=== PATIENT | female | born 1955 | race Caucasian/White ===

== ENCOUNTER 2016-08-09 04:52 | Emergency (ER) | payer BC ==
--- NOTE | 2016-08-09 06:31 | DIAGNOSTIC IMAGING REPORT ---
PROCEDURE: XR CHEST 2 VIEW INDICATION: SHORTNESS OF BREATH TECHNIQUE: PA and lateral view. COMPARISON: None. FINDINGS: Mild left upper lobe infiltrate with air bronchograms. 5 mm right mid lung nodule suggestive of a granuloma. Cardiovascular structures are normal. Bony thorax is unremarkable. IMPRESSION: 1. Left upper lobe pneumonia 2. 5 mm right mid lung peripheral nodule suggestive of a granuloma. Correlate with prior chest x-rays. If unavailable, recommend follow-up chest x-ray in 6 months.
--- NOTE | 2016-08-09 07:40 | ED ORDER SUMMARY ---
..... Patient: NICOLA WATTS OrderSheet [facility] VisitID: [id number] [address] [place] [address] 60y, F Registration Date/Time: 08/09/2016 ORDER SHEET Weight: 127.0 kg Allergies: No Known Drug Allergy GENERAL ORDERS: Chest 2V Urgent (05:10 08/09/2016 Lupe NICOLE) (Ack 5:12 ALawrence ER Tech1) (5:57 GUnger) Rapid Influenza Screen (Nasal Pharyngeal) (swab) Urgent (05:10 08/09/2016 Lupe NICOLE) (Ack 5:12 ALawrence ER Tech1) (5:27 HSoule) MEDICATION ORDERS: DuoNeb Neb Tx 1 unit dose (NOW) (05:11 08/09/2016 Lupe NICOLE) (5:27 HSoule) Zithromax PO 500 mg (NOW) (06:12 08/09/2016 Lupe NICOLE) (6:30 TLewis R.N.) IV FLUIDS: Rocephin IV 2 gm/50mL (NOW) (06:12 08/09/2016 Lupe NICOLE) (6:37 TLewis R.N.) ORDER SHEET NOTES: [Electronically signed by Jo-Ann Veras R.N. (08:42 08/09/2016)] [Electronically signed by Raf Chaudhary MD (23:32 08/11/2016)] [Electronically locked/signed by Jo-Ann Veras R.N. (08:42 08/09/2016)]
--- NOTE | 2016-08-09 07:40 | ED NURSING NOTES ---
Clinical Report - Nurses [facility] [address] [place] [address] 08/09/2016 4:54 Patient: NICOLA WATTS TRIAGE Triage time 04:58. Acuity: LEVEL 4. Chief Complaint: COUGH. --05:05 Franky Houston R.N. 04:58 08/09/16. BP: 170/88. HR: 102. RR: 15. O2 saturation: 99%. Temp: 99.5 F. Pain level now 11/16. --05:05 Franky Houston R.N. Weight: 127 kg. Height/Length: 62 inches. BMI: 51.3. --05:01 Franky Houston R.N. Medications Thyroid Hormone. --05:01 Franky Houston R.N. Lisinopril Oral. --05:01 Franky Houston R.N. Allergies No Known Drug Allergy. --05:01 Franky Houston R.N. Medication/allergy information source: the patient. --05:05 Franky Houston R.N. History Arrived by private vehicle. Historian: patient. Unaccompanied. Onset. (since friday). ( Pt has been coughing since Friday. Pt stated her urine is foul smelling, but no complaints of pain on urination. Pt is having sweating off and on. Pt took sulfa antibx that she had from a few months past then stopped taking them.). She has had chest congestion, chills and fatigue. Treatment BUTTERMAKER CONTINUOUS CHURN: Recently seen in a medical facility; treatment- antibiotic. PAST MEDICAL HX: Immunizations: up-to-date. SOCIAL HX: Never smoker. No alcohol use or drug use. --05:05 Franky Houston R.N. PROBLEMS: Multiple Sclerosis. Hypertension. Thyroid Disease. --05:02 Franky Houston R.N. ADDITIONAL SURGERIES: Knee Surgery. --05:03 Franky Houston R.N. Interventions ID band on patient. To waiting room. --05:05 Franky Houston R.N. PHYSICAL ASSESSMENT GENERAL / NEURO / PSYCH: Alert. Oriented X 4. Appears in no acute distress. HEENT: Pupils equal, round and reactive to light. Mucous membranes are pink. RESPIRATORY: Respirations not labored. Nonproductive cough. Chest nontender. Breath sounds within normal limits. ( pt has been having a dry cough since friday with non labored breathing.). CVS: Normal sinus rhythm noted. Capillary refill less than 2 seconds. Pulses within normal limits. GI / : Abdomen soft and nontender and normal bowel sounds. SKIN: Skin intact. Skin is warm and dry. Normal skin turgor. --05:06 Franky Houston R.N. NURSING PROGRESS NOTES Two patient identifiers checked. Call light placed in reach. Side rails up x 1. Bed placed in lowest position. --05:07 Franky Houston R.N. 05:27 08/09/2016 Duoneb (Ipratropium-Albuterol) Neb TX Nebulizer 1 unit dose given. Given by the respiratory therapist. Allergies verified and confirmed 5 rights. --05:27 Julia Del Castillo Reassessment after medication administered. Overall patient status- she states feels better. --05:28 Julia Del Castillo 06:28 08/09/2016 Site #1 started via IV in the right antecubital space with an 20g angiocath, with aseptic technique and good blood return; one attempt. Saline lock flushed with 10 mL saline. --06:29 Franky Houston R.N. 06:30 08/09/2016 Zithromax PO 500 mg given. Allergies verified and confirmed 5 rights. --06:30 Franky Houston R.N. 06:36 08/09/2016 Started 2 gm of Rocephin (CefTRIAXone Sodium) IVPB; at 150 mL/hr over 30 minute(s) via site #1 via IV pump. Allergies verified and confirmed 5 rights. IV patency established. IV site checked: no pain, redness, or swelling. IV flushed thoroughly pre- and post-medication administration. --06:37 Franky Houston R.N. 06:52 08/09/2016 Rocephin IVPB Discontinued: bag #1. Total amount infused: 50 mL. IV patency established. IV site checked: no pain, redness, or swelling. IV flushed thoroughly. --06:52 Franky Houston R.N. 07:22 08/09/16. The patient is resting quietly. Overall patient status is the same- she states feels worse (can't get comfortable). RESPIRATORY: No respiratory distress. CVS: Capillary refill within normal limits. SKIN: Skin is warm and dry. --07:22 Jo-Ann Veras R.N. 07:19 08/09/16. BP: 120/60. HR: 82. RR: 18. O2 saturation: 96%. Temp: 99.6 F (oral). Pain level now: 12/16. --07:22 Jo-Ann Veras R.N. 08:10. Reassessment after medication administered. She is calm and resting quietly. Overall patient status is improved- she states feels the same. RESPIRATORY: The patient reports cough. No respiratory distress. SKIN: Skin is warm and dry. --08:13 Jo-Ann Veras R.N. DISPOSITION / DISCHARGE 08:12 08/09/2016 Site #1 removed upon discharge. Catheter intact. Bandaid applied. --08:12 Jo-Ann Veras R.N. Departure time: 08. Condition at departure: stable. No learning barriers present. Discharge instructions provided and reviewed with the patient. Reviewed medication(s). Prescription(s) given to the patient. Patient verbalized understanding. Written instructions provided in Turkmen. The patient was discharged home and unaccompanied at time of discharge. She left the Emergency Department ambulatory and via private vehicle. FALL RISK ASSESSMENT: Fall risk assessment completed. No fall risk identified. --08:13 Jo-Ann Veras R.N. 08:08 08/09/16. BP: 141/84. HR: 84. RR: 18. O2 saturation: 97% on room air. Temp: 99.1 F (oral). Pain level now: 10/16. --08:13 Jo-Ann Veras R.N. Locked/Released at 08/09/2016 8:42 by Jo-Ann Veras R.N.
--- NOTE | 2016-08-09 07:40 | ED ORDER SUMMARY ---
..... Patient: NICOLA WATTS OrderSheet [facility] VisitID: [id number] [address] [place] [address] 60y, F Registration Date/Time: 08/09/2016 ORDER SHEET Weight: 127.0 kg Allergies: No Known Drug Allergy GENERAL ORDERS: Chest 2V Urgent (05:10 08/09/2016 Lupe NICOLE) (Ack 5:12 ALawrence ER Tech1) (5:57 GUnger) Rapid Influenza Screen (Nasal Pharyngeal) (swab) Urgent (05:10 08/09/2016 Lupe NICOLE) (Ack 5:12 ALawrence ER Tech1) (5:27 HSoule) MEDICATION ORDERS: DuoNeb Neb Tx 1 unit dose (NOW) (05:11 08/09/2016 Lupe NICOLE) (5:27 HSoule) Zithromax PO 500 mg (NOW) (06:12 08/09/2016 Lupe NICOLE) (6:30 TLewis R.N.) IV FLUIDS: Rocephin IV 2 gm/50mL (NOW) (06:12 08/09/2016 Lupe NICOLE) (6:37 TLewis R.N.) ORDER SHEET NOTES: [Electronically signed by Jo-Ann Veras R.N. (08:42 08/09/2016)] [Electronically signed by Raf Chaudhary MD (23:32 08/11/2016)] [Electronically locked/signed by Jo-Ann Veras R.N. (08:42 08/09/2016)]
--- NOTE | 2016-08-09 07:40 | ED CLINICAL REPORT ---
Clinical Report - Physicians/Mid Levels [facility] [address] [place] [address] 08/09/2016 4:54 [id number] Time Seen: 05:05 Aug 09 2016. Arrived- By private vehicle. Historian- patient. CPT: ER phys charges level 4 (#[id number]). HISTORY OF PRESENT ILLNESS Chief Complaint: COUGH. This started 3 days ER RN; ( Pt has been coughing since Friday. Pt stated her urine is foul smelling, but no complaints of pain on urination. Pt is having sweating off and on. Pt took sulfa antibx that she had from a few months past then stopped taking them.). She has had chest congestion, chills and fatigue. and is still present. The illness is described as moderate. The patient has had a cough. She has had moderate amounts of yellow, green sputum. No difficulty breathing, chest discomfort or pain, sore throat or hoarseness. No nasal congestion or discharge, sinus pressure or sinus drainage. Additional history - No known contact with a sick individual. Similar symptoms previously: Diagnosis: bronchitis. Recent medical care: Not recently seen/assessed. REVIEW OF SYSTEMS No headache, nausea, vomiting, diarrhea or abdominal pain. No pedal edema, calf pain, difficulty with urination or skin rash. All systems otherwise negative, except as recorded above. PAST HISTORY Multiple Sclerosis. Hypertension. Thyroid Disease Knee Surgery. Medications: Lisinopril Oral. Thyroid Hormone. Allergies: No Known Drug Allergy. SOCIAL HISTORY Never smoker. No alcohol use or drug use. ADDITIONAL NOTES The nursing notes have been reviewed. PHYSICAL EXAM Vital Signs: 08/09/2016 04:58 BP: 170/88. HR: 102. RR: 15. O2 saturation: 99%. Temp: 99.5 F. Appearance: Alert. No acute distress. Eyes: Eyes normal inspection. ENT: Nose normal. Pharynx normal. Neck: Normal inspection. CVS: Normal heart rate and rhythm. Heart sounds normal. Pulses normal. Respiratory: No respiratory distress. Mild wheezes in the left lung base posteriorly and mid-lung posteriorly. Abdomen: Soft and nontender. Back: Normal inspection. Skin: Skin warm. Normal skin color. No rash. Extremities: Extremities exhibit normal ROM. No calf tenderness. No lower extremity edema. Neuro: Oriented X 3. No motor deficit. No sensory deficit. LABS, X-RAYS, AND EKG Chest X-ray: Well-defined infiltrate in the left upper lobe. Consistent with pneumonia. Views: PA and lateral. Technique: good. The X-rays were independently viewed by me and interpreted contemporaneously by me. Laboratory Tests: Rapid Influenza Screen: (ARPITA: 08/09/2016 05:15) ( MsgRcvd 08/09/2016 05:33) Final results SPECIMEN DESCRIPTION: SWAB Test Result Flag Units (Reference) RAPID INFLUENZA SCREEN DATE: 08/09/16 INFLUENZA A: NEGATIVE SCREEN FOR INFLUENZA A INFLUENZA B: NEGATIVE SCREEN FOR INFLUENZA B . PROGRESS AND PROCEDURES Course of Care: Duoneb HHN: Wheezing better. Rocephin 2g IV Zithromax 500 mg po Patient is stable. Symptoms better. Patient/family counseled. Disposition: Discharged. Condition: stable. CLINICAL IMPRESSION Bacterial bronchopneumonia. Vital signs recorded and reviewed; empiric antibiotics given in the ED. No hypoxemia. INSTRUCTIONS No strenuous activity. Rest. Do not work for three days until better. Drink plenty of fluids. Warnings: Further evaluation is necessary. GENERAL WARNINGS: Return or contact your physician immediately if your condition worsens or changes unexpectedly, if not improving as expected, or if other problems arise. Your Current Medications: CONTINUE TAKING THE FOLLOWING MEDICATIONS: Lisinopril Oral. Thyroid Hormone*. Prescription Medications: Hydrocodone/APAP 5mg / 325mg: take 1-2 orally every 4 hours as needed. Dispense twenty (20). No refill. (for cough) Albuterol HFA oral inhaler: inhale 2 puffs via spacer every 4 hours as needed for wheezing or difficulty breathing. Dispense one (1) unit. No refill. (or cough) Ceftin 500 mg: take 1 tab orally every 12 hours for 10 days. No refills. Substitution is permissible. Zithromax 250 mg tablets: take 1 orally every day for 4 days. Total course 4 days. No refills. Follow-up: Follow up with your doctor Friday in three days. Call for the next available appointment. Understanding of the discharge instructions verbalized by patient. (Electronically signed by Raf Chaudhary MD 08/11/2016 23:32)
--- NOTE | 2016-08-09 07:40 | ED CLINICAL REPORT ---
Clinical Report - Physicians/Mid Levels [facility] [address] [place] [address] 08/09/2016 4:54 [id number] Time Seen: 05:05 Aug 09 2016. Arrived- By private vehicle. Historian- patient. CPT: ER phys charges level 4 (#[id number]). HISTORY OF PRESENT ILLNESS Chief Complaint: COUGH. 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 Pt stated her urine is foul smelling, but no complaints of pain on urination. Pt is having sweating off and on. Pt took sulfa antibx that she had from a few months past then stopped taking them.). She has had chest congestion, chills and fatigue. and is still present. The illness is described as moderate. The patient has had a cough. She has had moderate amounts of yellow, green sputum. No difficulty breathing, chest discomfort or pain, sore throat or hoarseness. No nasal congestion or discharge, sinus pressure or sinus drainage. Additional history - No known contact with a sick individual. Similar symptoms previously: Diagnosis: bronchitis. Recent medical care: Not recently seen/assessed. REVIEW OF SYSTEMS No headache, nausea, vomiting, diarrhea or abdominal pain. No pedal edema, calf pain, difficulty with urination or skin rash. All systems otherwise negative, except as recorded above. PAST HISTORY Multiple Sclerosis. Hypertension. Thyroid Disease Knee Surgery. Medications: Lisinopril Oral. Thyroid Hormone. Allergies: No Known Drug Allergy. SOCIAL HISTORY Never smoker. No alcohol use or drug use. ADDITIONAL NOTES The nursing notes have been reviewed. PHYSICAL EXAM Vital Signs: 08/09/2016 04:58 BP: 170/88. HR: 102. RR: 15. O2 saturation: 99%. Temp: 99.5 F. Appearance: Alert. No acute distress. Eyes: Eyes normal inspection. ENT: Nose normal. Pharynx normal. Neck: Normal inspection. CVS: Normal heart rate and rhythm. Heart sounds normal. Pulses normal. Respiratory: No respiratory distress. Mild wheezes in the left lung base posteriorly and mid-lung posteriorly. Abdomen: Soft and nontender. Back: Normal inspection. Skin: Skin warm. Normal skin color. No rash. Extremities: Extremities exhibit normal ROM. No calf tenderness. No lower extremity edema. Neuro: Oriented X 3. No motor deficit. No sensory deficit. LABS, X-RAYS, AND EKG Chest X-ray: Well-defined infiltrate in the left upper lobe. Consistent with pneumonia. Views: PA and lateral. Technique: good. The X-rays were independently viewed by me and interpreted contemporaneously by me. Laboratory Tests: Rapid Influenza Screen: (ARPITA: 08/09/2016 05:15) ( MsgRcvd 08/09/2016 05:33) Final results SPECIMEN DESCRIPTION: SWAB Test Result Flag Units (Reference) RAPID INFLUENZA SCREEN DATE: 08/09/16 INFLUENZA A: NEGATIVE SCREEN FOR INFLUENZA A INFLUENZA B: NEGATIVE SCREEN FOR INFLUENZA B . PROGRESS AND PROCEDURES Course of Care: Duoneb HHN: Wheezing better. Rocephin 2g IV Zithromax 500 mg po Patient is stable. Symptoms better. Patient/family counseled. Disposition: Discharged. Condition: stable. CLINICAL IMPRESSION Bacterial bronchopneumonia. Vital signs recorded and reviewed; empiric antibiotics given in the ED. No hypoxemia. INSTRUCTIONS No strenuous activity. Rest. Do not work for three days until better. Drink plenty of fluids. Warnings: Further evaluation is necessary. GENERAL WARNINGS: Return or contact your physician immediately if your condition worsens or changes unexpectedly, if not improving as expected, or if other problems arise. Your Current Medications: CONTINUE TAKING THE FOLLOWING MEDICATIONS: Lisinopril Oral. Thyroid Hormone*. Prescription Medications: Hydrocodone/APAP 5mg / 325mg: take 1-2 orally every 4 hours as needed. Dispense twenty (20). No refill. (for cough) Albuterol HFA oral inhaler: inhale 2 puffs via spacer every 4 hours as needed for wheezing or difficulty breathing. Dispense one (1) unit. No refill. (or cough) Ceftin 500 mg: take 1 tab orally every 12 hours for 10 days. No refills. Substitution is permissible. Zithromax 250 mg tablets: take 1 orally every day for 4 days. Total course 4 days. No refills. Follow-up: Follow up with your doctor Friday in three days. Call for the next available appointment. Understanding of the discharge instructions verbalized by patient. (Electronically signed by Raf Chaudhary MD 08/11/2016 23:32)
--- NOTE | 2016-08-11 23:32 | ED MAR SUMMARY ---
..... Medication Administration Record [facility] [address] [place] [address] Patient: NICOLA WATTS Visit ID: [id number] 60y, F Weight: 127.0 kg Height/Length: 62 in BMI: 51.3 ALLERGIES: No Known Drug Allergy Given 05:27 08/09/2016 Julia Del Castillo, Medication Administered: DUONEB [NEB TX] (IPRATROPIUM-ALBUTEROL), Dose: 1 unit dose Nebulizer Neb TX. Medication Ordered: DuoNeb Neb Tx 1 unit dose (NOW). Given 06:30 08/09/2016 Franky Houston R.N. Medication Administered: ZITHROMAX [PO], Dose: 500 mg PO. Medication Ordered: Zithromax PO 500 mg (NOW). Start 06:36 08/09/2016 Franky Houston RKeyannaN., Stop 06:52 08/09/2016 Franky Houston R.N. Medication Administered: ROCEPHIN [IVPB] (CEFTRIAXONE SODIUM), Dose: 2 gm IVPB over 30 minute(s), Rate: 150 mL/hr, Site: #1 right AC. Medication Ordered: Rocephin IV 2 gm/50mL (NOW).
--- NOTE | 2016-08-11 23:32 | ED MED RECONCILIATION SUMMARY ---
Patient: NICOLA WATTS Medication Reconciliation Report VisitID: [id number] [address] [place] [address] 60y, F Registration Date/Time: 08/09/2016 Weight: 127.0 kg Height/Length: 62 in. BMI: 51.3 ALLERGIES: No Known Drug Allergy The patient's Home Medications are listed below: CONTINUE TAKING THE FOLLOWING MEDICATIONS: Lisinopril Oral Thyroid Hormone The source(s) of the original Home Medication information: patient The following Medications were given to the patient in the Emergency Department: Duoneb [Neb Tx] Neb TX 1 unit dose, administered: 08/09/2016 5:27:00 AM Zithromax [PO] PO 500 mg, administered: 08/09/2016 6:30:00 AM Rocephin [IVPB] IVPB bolus 0, then 2 gm 150 mL/hr, administered: 08/09/2016 6:36:00 AM The following Medications were prescribed to the patient: Hydrocodone/APAP 5mg / 325mg: take 1-2 orally every 4 hours as needed. Dispense twenty (20). No refill.(for cough) -- Raf Chaudhary MD Albuterol HFA oral inhaler: inhale 2 puffs via spacer every 4 hours as needed for wheezing or difficulty breathing. Dispense one (1) unit. No refill.(or cough) -- Raf Chaudhary MD Ceftin 500 mg: take 1 tab orally every 12 hours for 10 days. No refills. Substitution is permissible. -- Raf Chaudhary MD Zithromax 250 mg tablets: take 1 orally every day for 4 days. Total course 4 days. No refills. -- Raf Chaudhary MD
--- NOTE | 2016-08-11 23:32 | ED DISCHARGE INSTRUCTIONS ---
Patient: NICOLA WATTS General Instructions Formerly [facility] VisitID: [id number] [place] [address] 60y, F Registration Date/Time: 08/09/2016 Bacterial bronchopneumonia. Vital signs recorded and reviewed; empiric antibiotics given in the ED. No hypoxemia. INSTRUCTIONS No strenuous activity. Rest. Do not work for three days until better. Drink plenty of fluids. Warnings: Further evaluation is necessary. GENERAL WARNINGS: Return or contact your physician immediately if your condition worsens or changes unexpectedly, if not improving as expected, or if other problems arise. Your Current Medications: CONTINUE TAKING THE FOLLOWING MEDICATIONS: Lisinopril Oral. Thyroid Hormone*. Prescription Medications: Hydrocodone/APAP 5mg / 325mg: take 1-2 orally every 4 hours as needed. Dispense twenty (20). No refill. (for cough) Albuterol HFA oral inhaler: inhale 2 puffs via spacer every 4 hours as needed for wheezing or difficulty breathing. Dispense one (1) unit. No refill. (or cough) Ceftin 500 mg: take 1 tab orally every 12 hours for 10 days. No refills. Substitution is permissible. Zithromax 250 mg tablets: take 1 orally every day for 4 days. Total course 4 days. No refills. Follow-up: Follow up with your doctor Friday in three days. Call for the next available appointment. Understanding of the discharge instructions verbalized by patient. ADDITIONAL INFORMATION Pneumonia (Adult) Pneumonia is an infection deep within the lung, in the small air sacs (alveoli). It may be due to a virus or bacteria and is usually treated with an antibiotic. Severe cases require treatment in the hospital. Milder cases can be treated at home. Symptoms usually start to improve during the first2 days of treatment. Home Care: Rest at home for the first 23 days or until you feel stronger. When resuming activity, dont let yourself become overly tired. Avoid exposure to cigarette smoke (yours or others). You may use acetaminophen (Tylenol) or ibuprofen (Motrin, Advil) to control fever or pain, unless another medicine was prescribed. [NOTE: If you have chronic liver or kidney disease or ever had a stomach ulcer or GI bleeding, talk with your doctor before using these medicines.] (Aspirin should never be used in anyone under 18 years of age who is ill with a fever. It may cause severe liver damage.) Your appetite may be poor so a light diet is fine. Keep well hydrated by drinking 68 glasses of fluids per day (water, sport drinks such as Gatorade, sodas without caffeine, juices, tea, soup, etc.). This will help loosen secretions in the lung, making it easier for you to cough up the phlegm (sputum). If you also have heart or kidney disease, check with your doctor before you drink extra amounts of fluids. Finish all antibiotic medicine prescribed, even if you are feeling better after a few days. Follow Up with your doctor in the next 23 days (or as advised) to be sure you are responding properly to the medicine. [NOTE: If you are age 65 or older, or if you have chronic lung disease (asthma, emphysema or COPD), we recommendthe pneumococcal vaccination and a yearlyinfluenzavaccination(flu-shot) every . Ask your doctor about this.] Get Prompt Medical Attention if any of the following occur: Not getting better within the first 48 hours of treatment Increasing shortness of breath or rapid breathing (over 25 breaths/minute) Coughing up blood or increasing chest pain with breathing Fever of 100.4F (38C) oral or higher, not better with fever medication Increasing weakness, dizziness or fainting Increasing thirst or dry mouth Sinus pain, headache or a stiff neck Chest pain not caused by coughing Hydrocodone Bitartrate, Acetaminophen Oral tablet What is this medicine? ACETAMINOPHEN; HYDROCODONE (a set a SALONI rodrigo fen; nader droe KOE done) is a pain reliever. It is used to treat mild to moderate pain. How should I use this medicine? Take this medicine by mouth. Swallow it with a full glass of water. Follow the directions on the prescription label. If the medicine upsets your stomach, take the medicine with food or milk. Do not take more than you are told to take. Talk to your car seat upholsterer regarding the use of this medicine in children. This medicine is not approved for use in children. What side effects may I notice from receiving this medicine? Side effects that you should report to your doctor or health health care consultant as soon as possible: allergic reactions like skin rash, itching or hives, swelling of the face, lips, or tongue breathing problems confusion feeling faint or lightheaded, falls stomach pain yellowing of the eyes or skin Side effects that usually do not require medical attention (report to your doctor or health health care consultant if they continue or are bothersome): nausea, vomiting stomach upset What may interact with this medicine? alcohol antihistamines isoniazid medicines for depression, anxiety, or psychotic disturbances medicines for sleep muscle relaxants naltrexone narcotic medicines (opiates) for pain phenobarbital ritonavir tramadol What if I miss a dose? If you miss a dose, take it as soon as you can. If it is almost time for your next dose, take only that dose. Do not take double or extra doses. Where should I keep my medicine? Keep out of the reach of children. This medicine can be abused. Keep your medicine in a safe place to protect it from theft. Do not share this medicine with anyone. Selling or giving away this medicine is dangerous and against the law. Store at room temperature between 15 and 30 degrees C (59 and 86 degrees F). Protect from light. Keep container tightly closed. Throw away any unused medicine after the expiration date. Discard unused medicine and used packaging carefully. Pets and children can be harmed if they find used or lost packages. What should I tell my health care provider before I take this medicine? They need to know if you have any of these conditions: brain tumor Crohn's disease, inflammatory bowel disease, or ulcerative colitis drink more than 3 alcohol-containing drinks per day drug abuse or addiction head injury heart or circulation problems kidney disease or problems going to the bathroom liver disease lung disease, asthma, or breathing problems an unusual or allergic reaction to acetaminophen, hydrocodone, other opioid analgesics, other medicines, foods, dyes, or preservatives or trying to get breast-feeding What should I watch for while using this medicine? Tell your doctor or health health care consultant if your pain does not go away, if it gets worse, or if you have new or a different type of pain. You may develop tolerance to the medicine. Tolerance means that you will need a higher dose of the medicine for pain relief. Tolerance is normal and is expected if you take the medicine for a long time. Do not suddenly stop taking your medicine because you may develop a severe reaction. Your body becomes used to the medicine. This does NOT mean you are addicted. Addiction is a behavior related to getting and using a drug for a non-medical reason. If you have pain, you have a medical reason to take pain medicine. Your doctor will tell you how much medicine to take. If your doctor wants you to stop the medicine, the dose will be slowly lowered over time to avoid any side effects. You may get drowsy or dizzy when you first start taking the medicine or change doses. Do not drive, use machinery, or do anything that may be dangerous until you know how the medicine affects you. Stand or sit up slowly. There are different types of narcotic medicines (opiates) for pain. If you take more than one type at the same time, you may have more side effects. Give your health care provider a list of all medicines you use. Your doctor will tell you how much medicine to take. Do not take more medicine than directed. Call emergency for help if you have problems breathing. The medicine will cause constipation. Try to have a bowel movement at least every 2 to 3 days. If you do not have a bowel movement for 3 days, call your doctor or health health care consultant. Too much acetaminophen can be very dangerous. Do not take Tylenol (acetaminophen) or medicines that contain acetaminophen with this medicine. Many non-prescription medicines contain acetaminophen. Always read the labels carefully. Albuterol Sulfate Pressurized inhalation, suspension What is this medicine? ALBUTEROL (al BYOO ter ole) is a bronchodilator. It helps open up the airways in your lungs to make it easier to breathe. This medicine is used to treat and to prevent bronchospasm. How should I use this medicine? This medicine is for inhalation through the mouth. Follow the directions on your prescription label. Take your medicine at regular intervals. Do not use more often than directed. Make sure that you are using your inhaler correctly. Ask you doctor or health care provider if you have any questions. Talk to your car seat upholsterer regarding the use of this medicine in children. Special care may be needed. What side effects may I notice from receiving this medicine? Side effects that you should report to your doctor or health health care consultant as soon as possible: allergic reactions like skin rash, itching or hives, swelling of the face, lips, or tongue breathing problems chest pain feeling faint or lightheaded, falls high blood pressure irregular heartbeat fever muscle cramps or weakness pain, tingling, numbness in the hands or feet vomiting Side effects that usually do not require medical attention (report to your doctor or health health care consultant if they continue or are bothersome): cough difficulty sleeping headache nervousness or trembling stomach upset stuffy or runny nose throat irritation unusual taste What may interact with this medicine? anti-infectives like chloroquine and pentamidine caffeine cisapride diuretics medicines for colds medicines for depression or for emotional or psychotic conditions medicines for weight loss including some herbal products methadone some antibiotics like clarithromycin, erythromycin, levofloxacin, and linezolid some heart medicines steroid hormones like dexamethasone, cortisone, hydrocortisone theophylline thyroid hormones What if I miss a dose? If you miss a dose, use it as soon as you can. If it is almost time for your next dose, use only that dose. Do not use double or extra doses. Where should I keep my medicine? Keep out of the reach of children. Store at room temperature between 15 and 30 degrees C (59 and 86 degrees F). The contents are under pressure and may burst when exposed to heat or flame. Do not freeze. This medicine does not work as well if it is too cold. Throw away any unused medicine after the expiration date. Inhalers need to be thrown away after the labeled number of puffs have been used or by the expiration date; whichever comes first. Ventolin HFA should be thrown away 12 months after removing from foil pouch. Check the instructions that come with your medicine. What should I tell my health care provider before I take this medicine? They need to know if you have any of the following conditions: diabetes heart disease or irregular heartbeat high blood pressure pheochromocytoma seizures thyroid disease an unusual or allergic reaction to albuterol, levalbuterol, sulfites, other medicines, foods, dyes, or preservatives or trying to get breast-feeding What should I watch for while using this medicine? Tell your doctor or health health care consultant if your symptoms do not improve. Do not use extra albuterol. If your asthma or bronchitis gets worse while you are using this medicine, call your doctor right away. If your mouth gets dry try chewing sugarless gum or sucking hard candy. Drink water as directed. Azithromycin Oral tablet What is this medicine? AZITHROMYCIN (az ith johan MYE sin) is a macrolide antibiotic. It is used to treat or prevent certain kinds of bacterial infections. It will not work for colds, flu, or other viral infections. How should I use this medicine? Take this medicine by mouth with a full glass of water. Follow the directions on the prescription label. The tablets can be taken with food or on an empty stomach. If the medicine upsets your stomach, take it with food. Take your medicine at regular intervals. Do not take your medicine more often than directed. Take all of your medicine as directed even if you think your are better. Do not skip doses or stop your medicine early. Talk to your car seat upholsterer regarding the use of this medicine in children. Special care may be needed. What side effects may I notice from receiving this medicine? Side effects that you should report to your doctor or health health care consultant as soon as possible: allergic reactions like skin rash, itching or hives, swelling of the face, lips, or tongue confusion, nightmares or hallucinations dark urine difficulty breathing hearing loss irregular heartbeat or chest pain pain or difficulty passing urine redness, blistering, peeling or loosening of the skin, including inside the mouth white patches or sores in the mouth yellowing of the eyes or skin Side effects that usually do not require medical attention (report to your doctor or health health care consultant if they continue or are bothersome): diarrhea dizziness, drowsiness headache stomach upset or vomiting tooth discoloration vaginal irritation What may interact with this medicine? Do not take this medicine with any of the following medications: lincomycin This medicine may also interact with the following medications: amiodarone antacids cyclosporine digoxin magnesium nelfinavir phenytoin warfarin What if I miss a dose? If you miss a dose, take it as soon as you can. If it is almost time for your next dose, take only that dose. Do not take double or extra doses. Where should I keep my medicine? Keep out of the reach of children. Store at room temperature between 15 and 30 degrees C (59 and 86 degrees F). Throw away any unused medicine after the expiration date. What should I tell my health care provider before I take this medicine? They need to know if you have any of these conditions: kidney disease liver disease irregular heartbeat or heart disease an unusual or allergic reaction to azithromycin, erythromycin, other macrolide antibiotics, foods, dyes, or preservatives or trying to get breast-feeding What should I watch for while using this medicine? Tell your doctor or health health care consultant if your symptoms do not improve. Do not treat diarrhea with over the counter products. Contact your doctor if you have diarrhea that lasts more than 2 days or if it is severe and watery. This medicine can make you more sensitive to the sun. Keep out of the sun. If you cannot avoid being in the sun, wear protective clothing and use sunscreen. Do not use sun lamps or tanning beds/booths. You have been given the following additional information: Pneumonia (Adult) Hydrocodone Bitartrate, Acetaminophen Oral tablet Albuterol Sulfate Pressurized inhalation, suspension Azithromycin Oral tablet No strenuous activity. Rest. Do not work for three days until better. (Electronically signed by Raf Chaudhary MD 08/11/2016 23:32)
--- NOTE | 2016-08-11 23:32 | ED MED RECONCILIATION SUMMARY ---
Patient: NICOLA WATTS Medication Reconciliation Report [facility] VisitID: [id number] [address] [place] [address] 60y, F Registration Date/Time: 08/09/2016 Weight: 127.0 kg Height/Length: 62 in. BMI: 51.3 ALLERGIES: No Known Drug Allergy The patient's Home Medications are listed below: CONTINUE TAKING THE FOLLOWING MEDICATIONS: Lisinopril Oral Thyroid Hormone The source(s) of the original Home Medication information: patient The following Medications were given to the patient in the Emergency Department: Duoneb [Neb Tx] Neb TX 1 unit dose, administered: 08/09/2016 5:27:00 AM Zithromax [PO] PO 500 mg, administered: 08/09/2016 6:30:00 AM Rocephin [IVPB] IVPB bolus 0, then 2 gm 150 mL/hr, administered: 08/09/2016 6:36:00 AM The following Medications were prescribed to the patient: Hydrocodone/APAP 5mg / 325mg: take 1-2 orally every 4 hours as needed. Dispense twenty (20). No refill.(for cough) -- Raf Chaudhary MD Albuterol HFA oral inhaler: inhale 2 puffs via spacer every 4 hours as needed for wheezing or difficulty breathing. Dispense one (1) unit. No refill.(or cough) -- Raf Chaudhary MD Ceftin 500 mg: take 1 tab orally every 12 hours for 10 days. No refills. Substitution is permissible. -- Raf Chaudhary MD Zithromax 250 mg tablets: take 1 orally every day for 4 days. Total course 4 days. No refills. -- Raf Chaudhary MD
--- NOTE | 2016-08-11 23:32 | ED MAR SUMMARY ---
..... Medication Administration Record [facility] [address] [place] [address] Patient: NICOLA WATTS Visit ID: [id number] 60y, F Weight: 127.0 kg Height/Length: 62 in BMI: 51.3 ALLERGIES: No Known Drug Allergy Given 05:27 08/09/2016 Julia Del Castillo, Medication Administered: DUONEB [NEB TX] (IPRATROPIUM-ALBUTEROL), Dose: 1 unit dose Nebulizer Neb TX. Medication Ordered: DuoNeb Neb Tx 1 unit dose (NOW). Given 06:30 08/09/2016 Franky Houston R.N. Medication Administered: ZITHROMAX [PO], Dose: 500 mg PO. Medication Ordered: Zithromax PO 500 mg (NOW). Start 06:36 08/09/2016 Franky Houston RKeyannaN., Stop 06:52 08/09/2016 Franky Houston R.N. Medication Administered: ROCEPHIN [IVPB] (CEFTRIAXONE SODIUM), Dose: 2 gm IVPB over 30 minute(s), Rate: 150 mL/hr, Site: #1 right AC. Medication Ordered: Rocephin IV 2 gm/50mL (NOW).
== END 2016-08-09 08:10 | disposition home or self-care (01) ==
LOC: ED SRH 04:52
DX: J15.9 Unspecified bacterial pneumonia (principal); I10 Essential (primary) hypertension; G35 Multiple sclerosis
CPT/HCPCS: 91400

== ENCOUNTER 2016-09-28 08:48 | Emergency (ER) | payer BC ==
--- NOTE | 2016-09-28 11:57 | DIAGNOSTIC IMAGING REPORT ---
PROCEDURE: XR TIBIA AND FIBULA - RIGHT INDICATION: TRAUMA/INJURY TECHNIQUE: AP and lateral views. COMPARISON: None. FINDINGS: Knee arthroplasty. Single screw through the talus. There is soft tissue swelling anterior to the tibia but no radiopaque foreign body. There is a soft tissue calcification inferiorly which may represent a phlebolith. No fracture or dislocation. IMPRESSION: 1. No acute changes.
--- NOTE | 2016-09-28 13:02 | ED NURSING NOTES ---
Clinical Report - Nurses [facility] [address] [place] [address] 09/28/2016 8:48 Patient: NICOLA WATTS TRIAGE Triage time 09:27. Acuity: LEVEL 5. Chief Complaint: SKIN LESION and TENDER AREA. 09:44 09/28/16. 09:44 09/28/16. JUANPABLO COMA SCORE: [place] Coma Scale: 15- eyes open spontaneously (4); best verbal response- oriented x 4 (5); best motor response- obeys commands (6). --09:44 Sandrine Rachel R.N. 09:27 09/28/16. BP: 164/93. HR: 83. RR: 20. O2 saturation: 93%. Temp: 98.3 F. Pain level now: 7/10. Additional comments: RLE. --09:44 Sandrine Rachel R.N. Weight: 127 kg stated. Height/Length: 62 inches Per Patient. BMI: 51.3. --09:40 Sandrine Rachel R.N. Medications Lisinopril Oral (Tablet 20 mg), daily. --09:38 Sandrine Rachel R.N. Levothyroxine Sodium Oral 175 mcg, daily. --09:38 Sandrine Rachel R.N. Allergies Penicillin.(itching, rash) --09:33 Sandrine Rachel R.N. Vancocin.(angioedema, itching, rash) (skin peeling) --09:34 Sandrine Rachel R.N. Rifampin. Possible --09:37 Sandrine Rachel R.N. History Arrived by private vehicle. Historian: patient. 09:44 09/28/16. Reported as (RLE). Onset. (1 weeks 09:28). It is described as burning and painful. 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 Pt was on IV abx for 4 months. Had new hardware placed 2014. Pt has had several staph infections in that leg. Pt was walking on her mayk last Friday (1 week ago) when a board snapped and her right leg fell through and became very stuck between the boards. No skin was broke, per pt. Pt iced/elevated and did go to the walk-in clinic yesterday after she noticed "tingling". Left with a prescription of lasix, potassium and cephazolin, but this morning leg is hot with redness.). PAST MEDICAL HX: Immunizations: up-to-date. The patient is post-menopausal. SURGERY HX: Right and left knee surgery. SOCIAL HX: Alcohol use; consumes liquor occasionally. FALL RISK ASSESSMENT: Fall risk assessment completed. No fall risk identified. NUTRITIONAL RISK ASSESSMENT: The nutritional risk assessment revealed no deficiencies. FUNCTIONAL ASSESSMENT: Functional assessment: no impairments noted. LEARNING NEEDS ASSESSMENT: The learning needs assessment revealed no barriers. SKIN INTEGRITY ASSESSMENT: Skin integrity risk assessment completed. No skin integrity risk identified. --09:44 Sandrine Rachel R.N. PROBLEMS: Cellulitis. --09:39 Sandrine Rachel R.N. Pneumonia. Multiple Sclerosis. Hypertension. Thyroid Disease. --10:03 Sandrine Rachel R.N. Assessment 09:44 09/28/16. She states feels the same. --09:44 Sandrine Rachel R.N. Interventions 09:44 09/28/16. 09:44 09/28/16. ID band on patient. --09:44 Sandrine Rachel R.N. NURSING PROGRESS NOTES 10:50 09/28/16. BP: 142/78 (regular adult cuff) taken on the left arm, while sitting. HR: 83. RR: 20 (regular). O2 saturation: 95% on room air. Temp: 98.9 F (oral). --10:52 Ira Dyson ( US at the bedside for exam.). --12:12 Aleah Garcia R.N. 12:25 09/28/16. BP: 131/78. HR: 81. RR: 18. O2 saturation: 97%. --12:27 Aleah Garcia R.N. 13:14 09/28/2016 Bactrim DS (Sulfamethoxazole-TMP DS) PO 1 tab given. Allergies verified and confirmed 5 rights. --13:24 Julia Paige R.N. DISPOSITION / DISCHARGE Departure time: 13:Sep 28 2016. Condition at departure: improved and stable. No learning barriers present. Discharge instructions provided and reviewed with the patient. Reviewed medication(s) side effects, precautions, dosing and course information. Prescription(s) given to the patient. Patient verbalized understanding. Written instructions provided in Khmer. The patient was discharged by the physician. She was discharged home. She left the Emergency Department ambulatory and via private vehicle. Patient driving. --17:41 Julia Paige R.N. 17:39 09/28/16. BP: 150/80. HR: 88. RR: 16. O2 saturation: 100% on room air. Temp: 98 F (oral). Pain level now: 12/16. --17:41 Julia Paige R.N. Locked/Released at 09/28/2016 17:41 by Julia Paige R.N.
--- NOTE | 2016-09-28 13:02 | ED CLINICAL REPORT ---
Clinical Report - Physicians/Mid Levels [facility] [address] [place] [address] 09/28/2016 8:48 Patient: NICOLA WATTS Arrived- By private vehicle. Historian- patient. HISTORY OF PRESENT ILLNESS Chief Complaint: LOWER EXTREMITY PAIN and SWELLING. This started several days ago and is still present and worsening. (Pt's R leg went through a rotten deck board. It went in up to the mid R calf.). It was abrupt in onset. Severity is described as being moderate. The quality is noted to be "pain". No radiation. The patient has had redness and swelling. She has had difficulty walking. No bowel dysfunction, sensory loss or motor loss. Patient notes an injury. Mechanism of injury- she nearly fell and fell while walking. Similar symptoms previously: None. REVIEW OF SYSTEMS No cough, chest pain, difficulty breathing, fever or abdominal pain. PAST HISTORY ( PROBLEMS: Cellulitis. Pneumonia. Multiple Sclerosis. Hypertension. Thyroid Disease.). SOCIAL HISTORY Occasional alcohol use. ADDITIONAL NOTES The nursing notes have been reviewed. PHYSICAL EXAM Vital Signs: 09/28/2016 17:39 BP: 150/80. HR: 88. RR: 16. O2 saturation: 100%. Temp: 98 F. Pain level now: 10. 09/28/2016 12:25 BP: 131/78. HR: 81. RR: 18. O2 saturation: 97%. 09/28/2016 10:50 BP: 142/78. HR: 83. RR: 20. O2 saturation: 95%. Temp: 98.9 F. 09/28/2016 09:27 BP: 164/93. HR: 83. RR: 20. O2 saturation: 93%. Temp: 98.3 F. Pain level now: 12/16. Appearance: Alert. No acute distress. Respiratory: No respiratory distress. Breath sounds normal. Skin: Skin warm. Normal skin color. Extremities: Right leg: moderate erythema and tenderness and mild swelling located in the anterior, posterior, medial and lateral aspect of mid leg. Neurovascular intact distally. No laceration, abrasion or deformity. Lower extremity signs of infection present. No lower extremity edema. Extremities otherwise negative. Gait: Limping gait. Neuro: No motor deficit. No sensory deficit. LABS, X-RAYS, AND EKG Rt Knee X-ray: (PROCEDURE: XR TIBIA AND FIBULA - RIGHT INDICATION: TRAUMA/INJURY TECHNIQUE: AP and lateral views. COMPARISON: None. FINDINGS: Knee arthroplasty. Single screw through the talus. There is soft tissue swelling anterior to the tibia but no radiopaque foreign body. There is a soft tissue calcification inferiorly which may represent a phlebolith. No fracture or dislocation. IMPRESSION: 1. No acute changes. Electronically Final signed by:Ron Torres MD 09/28/2016 11:57:42 AM). The X-rays were interpreted by the radiologist and contemporaneously by me. Lower Extremity Sonography: PROCEDURE: US VENOUS - RIGHT EXT INDICATION: Right lower extremity swelling x 1 week. TECHNIQUE: Duplex sonography of the deep venous system in the right lower extremity was performed. Compression and augmentation techniques were used. COMPARISON: None. FINDINGS: Normal compression of the greater saphenous, common femoral, superficial femoral, popliteal, peroneal, and posterior tibial veins. Normal augmentation. There is no evidence of superficial or deep venous thrombosis. 4.1 x 3.9 x 0.7 cm fluid collection in the right mid calf most consistent with a post-traumatic hematoma/the collection. IMPRESSION: 1. No evidence of a right lower extremity DVT 2. Right calf post-traumatic hematoma/fluid collection. Dictated by: RON TORRES MD D: LANYUDITH;09/28/161331 <Electronically signed by RON TORRES MD in [facility]> 09/28/161331. The study was interpreted by the radiologist and discussed with the radiologist. PROGRESS AND PROCEDURES Course of Care: 12:21 09/28/16. 5 cm hematoma. No DVT. Skin exam is CW cellulitis. Disposition: Discharged. Condition: stable. CLINICAL IMPRESSION Cellulitis of the right lower leg. Contusion to the right lower leg. Clinical picture does not suggest superficial thrombophlebitis. HEMATOMA R LOWER LEG. INSTRUCTIONS (THERE IS NO FRACTURE OF BLOOD CLOT THERE IS A DEEP BRUISE AND BLOOD COLLECTION THERE MAY BE A CELLUITIS / INFECTION). Prescription Medications: Trimethoprim-Sulfamethoxazole DS: take 1 tablet orally every 12 hours for 7 days. Dispense fourteen (14). No refills. (Electronically signed by Jan Carter MD 09/30/2016 11:28)
--- NOTE | 2016-09-28 13:02 | ED ORDER SUMMARY ---
..... Patient: NICOLA WATTS OrderSheet [facility] VisitID: [id number] [address] [place] [address] 60y, F Registration Date/Time: 09/28/2016 ORDER SHEET Weight: 127.0 kg (stated) Allergies: Penicillin, Vancocin, Rifampin GENERAL ORDERS: Tibia/Fibula Right Urgent (10:55 09/28/2016 Héctor NICOLE) (Ack 11:00 OSnell) (12:27 SRedank R.N.) US Venous Right Urgent (10:55 09/28/2016 Héctor NICOLE) (Ack 11:00 OSnell) (12:27 SRedank R.N.) MEDICATION ORDERS: Bactrim DS PO (Tablet 800-160 mg) 1 tab (NOW) (13:07 09/28/2016 Héctor NICOLE) (Ack 13:15 MWinterer R.N.) (13:24 MWinterer R.N.) IV FLUIDS: ORDER SHEET NOTES: [Electronically signed by Juila Paige R.N. (17:41 09/28/2016)] [Electronically signed by Jan Carter MD (11:28 09/30/2016)] [Electronically locked/signed by Julia Paige R.N. (17:41 09/28/2016)]
--- NOTE | 2016-09-28 13:02 | ED ORDER SUMMARY ---
..... Patient: NICOLA WATTS OrderSheet [facility] VisitID: [id number] [address] [place] [address] 60y, F Registration Date/Time: 09/28/2016 ORDER SHEET Weight: 127.0 kg (stated) Allergies: Penicillin, Vancocin, Rifampin GENERAL ORDERS: Tibia/Fibula Right Urgent (10:55 09/28/2016 Héctor NICOLE) (Ack 11:00 OSnell) (12:27 SRedank R.N.) US Venous Right Urgent (10:55 09/28/2016 Héctor NICOLE) (Ack 11:00 OSnell) (12:27 SRedank R.N.) MEDICATION ORDERS: Bactrim DS PO (Tablet 800-160 mg) 1 tab (NOW) (13:07 09/28/2016 Héctor NICOLE) (Ack 13:15 MWinterer R.N.) (13:24 MWinterer R.N.) IV FLUIDS: ORDER SHEET NOTES: [Electronically signed by Julia Paige R.N. (17:41 09/28/2016)] [Electronically signed by Jan Carter MD (11:28 09/30/2016)] [Electronically locked/signed by Julia Paige R.N. (17:41 09/28/2016)]
--- NOTE | 2016-09-28 13:32 | DIAGNOSTIC IMAGING REPORT ---
PROCEDURE: US VENOUS - RIGHT EXT INDICATION: Right lower extremity swelling x 1 week. TECHNIQUE: Duplex sonography of the deep venous system in the right lower extremity was performed. Compression and augmentation techniques were used. COMPARISON: None. FINDINGS: Normal compression of the greater saphenous, common femoral, superficial femoral, popliteal, peroneal, and posterior tibial veins. Normal augmentation. There is no evidence of superficial or deep venous thrombosis. 4.1 x 3.9 x 0.7 cm fluid collection in the right mid calf most consistent with a post-traumatic hematoma/the collection. IMPRESSION: 1. No evidence of a right lower extremity DVT 2. Right calf post-traumatic hematoma/fluid collection.
--- NOTE | 2016-09-30 11:28 | ED MED RECONCILIATION SUMMARY ---
Patient: NICOLA WATTS Medication Reconciliation Report [facility] VisitID: [id number] [address] [place] [address] 60y, F Registration Date/Time: 09/28/2016 Weight: 127.0 kg Height/Length: 62 in. BMI: 51.3 ALLERGIES: Penicillin, Rifampin, Vancocin The patient's Home Medications are listed below: THE FOLLOWING MEDICATIONS NEED TO BE RECONCILED: Levothyroxine Sodium Oral 175 mcg, daily Lisinopril Oral (20 mg), daily The source(s) of the original Home Medication information: Not obtained. The following Medications were given to the patient in the Emergency Department: Bactrim DS [PO] PO 1 tab, administered: 09/28/2016 1:14:00 PM The following Medications were prescribed to the patient: Trimethoprim-Sulfamethoxazole DS: take 1 tablet orally every 12 hours for 7 days. Dispense fourteen (14). No refills. -- Jan Carter MD
--- NOTE | 2016-09-30 11:28 | ED DISCHARGE INSTRUCTIONS ---
Patient: NICOLA WATTS General Instructions [facility] VisitID: [id number] [place] [address] 60y, F Registration Date/Time: 09/28/2016 Cellulitis of the right lower leg. Contusion to the right lower leg. HEMATOMA R LOWER LEG. INSTRUCTIONS (THERE IS NO FRACTURE OF BLOOD CLOT THERE IS A DEEP BRUISE AND BLOOD COLLECTION THERE MAY BE A CELLUITIS / INFECTION). Prescription Medications: Trimethoprim-Sulfamethoxazole DS: take 1 tablet orally every 12 hours for 7 days. Dispense fourteen (14). No refills. ADDITIONAL INFORMATION Cellulitis You have an infection of the skin known as cellulitis. This usually starts with a scrape, cut, insect bite, blister or other opening in the skin which becomes infected. This is a serious condition. It must be watched closely to be sure the infection is not spreading. With antibiotic treatment, the size of the red area will gradually shrink in size until the skin returns to normal. This will take 7-10 days. The red area should never increase in size once the antibiotic medicine has been started. Occasionally, an infection will be resistant to one antibiotic and another one will have to be used. Home Care: 1) Limit the use of the affected part, since excess movement can cause the infection to spread. 2) If the infection is on your leg, walk as little as possible during the first few days of the treatment. Keep your leg elevated while sitting. This will reduce swelling. 3) Take all of the antibiotic medicine exactly as directed until it is gone. Be careful not to miss any doses, especially during the first seven days. Follow Up with your doctor or this facility as directed. Check the infected area daily for the warning signs listed below. Get Prompt Medical Attention if any of the following occur: -- Spreading area of redness -- Increasing swelling or pain -- Appearance of pus or drainage -- Fever over 100.4 F (38.0 C) oral, or over 101.4 F (38.6 C) rectal, after two days on antibiotics You have been given the following additional information: Cellulitis (Electronically signed by Jan Carter MD 09/30/2016 11:28)
--- NOTE | 2016-09-30 11:28 | ED MAR SUMMARY ---
..... Medication Administration Record [facility] [place] [facility] [address] [place] [address] Patient: NICOLA WATTS Visit ID: [id number] 60y, F Weight: 127.0 kg Height/Length: 62 in BMI: 51.3 ALLERGIES: Rifampin, Vancocin, Penicillin Given 13:14 09/28/2016 Julia Paige R.N. Medication Administered: BACTRIM DS [PO] (SULFAMETHOXAZOLE-TMP DS), Dose: 1 tab PO. Medication Ordered: Bactrim DS PO (Tablet 800-160 mg) 1 tab (NOW).
--- NOTE | 2016-09-30 11:28 | ED MAR SUMMARY ---
..... Medication Administration Record [facility] [address] [place] [address] Patient: NICOLA WATTS Visit ID: [id number] 60y, F Weight: 127.0 kg Height/Length: 62 in BMI: 51.3 ALLERGIES: Rifampin, Vancocin, Penicillin Given 13:14 09/28/2016 Julia Paige R.N. Medication Administered: BACTRIM DS [PO] (SULFAMETHOXAZOLE-TMP DS), Dose: 1 tab PO. Medication Ordered: Bactrim DS PO (Tablet 800-160 mg) 1 tab (NOW).
--- NOTE | 2016-09-30 11:28 | ED MED RECONCILIATION SUMMARY ---
Patient: NICOLA WATTS Medication Reconciliation Report [facility] VisitID: [id number] [address] [place] [address] 60y, F Registration Date/Time: 09/28/2016 Weight: 127.0 kg Height/Length: 62 in. BMI: 51.3 ALLERGIES: Penicillin, Rifampin, Vancocin The patient's Home Medications are listed below: THE FOLLOWING MEDICATIONS NEED TO BE RECONCILED: Levothyroxine Sodium Oral 175 mcg, daily Lisinopril Oral (20 mg), daily The source(s) of the original Home Medication information: Not obtained. The following Medications were given to the patient in the Emergency Department: Bactrim DS [PO] PO 1 tab, administered: 09/28/2016 1:14:00 PM The following Medications were prescribed to the patient: Trimethoprim-Sulfamethoxazole DS: take 1 tablet orally every 12 hours for 7 days. Dispense fourteen (14). No refills. -- Jan Carter MD
--- NOTE | 2016-09-30 11:28 | ED DISCHARGE INSTRUCTIONS ---
Patient: NICOLA WATTS General Instructions [facility] VisitID: [id number] [place] [address] 60y, F Registration Date/Time: 09/28/2016 Cellulitis of the right lower leg. Contusion to the right lower leg. HEMATOMA R LOWER LEG. INSTRUCTIONS (THERE IS NO FRACTURE OF BLOOD CLOT THERE IS A DEEP BRUISE AND BLOOD COLLECTION THERE MAY BE A CELLUITIS / INFECTION). Prescription Medications: Trimethoprim-Sulfamethoxazole DS: take 1 tablet orally every 12 hours for 7 days. Dispense fourteen (14). No refills. ADDITIONAL INFORMATION Cellulitis You have an infection of the skin known as cellulitis. This usually starts with a scrape, cut, insect bite, blister or other opening in the skin which becomes infected. This is a serious condition. It must be watched closely to be sure the infection is not spreading. With antibiotic treatment, the size of the red area will gradually shrink in size until the skin returns to normal. This will take 7-10 days. The red area should never increase in size once the antibiotic medicine has been started. Occasionally, an infection will be resistant to one antibiotic and another one will have to be used. Home Care: 1) Limit the use of the affected part, since excess movement can cause the infection to spread. 2) If the infection is on your leg, walk as little as possible during the first few days of the treatment. Keep your leg elevated while sitting. This will reduce swelling. 3) Take all of the antibiotic medicine exactly as directed until it is gone. Be careful not to miss any doses, especially during the first seven days. Follow Up with your doctor or this facility as directed. Check the infected area daily for the warning signs listed below. Get Prompt Medical Attention if any of the following occur: -- Spreading area of redness -- Increasing swelling or pain -- Appearance of pus or drainage -- Fever over 100.4 F (38.0 C) oral, or over 101.4 F (38.6 C) rectal, after two days on antibiotics You have been given the following additional information: Cellulitis (Electronically signed by Jan Carter MD 09/30/2016 11:28)
== END 2016-09-28 13:20 | disposition home or self-care (01) ==
LOC: ED SRH 08:48
DX: L03.115 Cellulitis of right lower limb (principal); S80.11XA Contusion of right lower leg, initial encounter; W13.8XXA Fall from, out of or through other building or structure, initial encounter; Y93.01 Activity, walking, marching and hiking; Y99.9 Unspecified external cause status; Y92.9 Unspecified place or not applicable; I10 Essential (primary) hypertension; Z88.0 Allergy status to penicillin; E07.9 Disorder of thyroid, unspecified; G35 Multiple sclerosis

== ENCOUNTER 2016-11-01 08:12 | Emergency (ER) | payer BC ==
--- NOTE | 2016-11-01 11:16 | DIAGNOSTIC IMAGING REPORT ---
PROCEDURE: US VENOUS - RIGHT EXT INDICATION: PAIN TECHNIQUE: Duplex sonography of the deep venous system in the right lower extremity was performed. Compression and augmentation techniques were used. COMPARISON: None. FINDINGS: Each interrogated segment of deep vein from the common femoral vein into the calf veins demonstrates normal compressibility, augmentation and/or color Doppler flow without filling defect. On the right lateral calf there is a 9 x 6 cm fluid collection that could represent a hematoma IMPRESSION: 1. No deep venous thrombosis in the right lower extremity.
--- NOTE | 2016-11-01 11:29 | ED CLINICAL REPORT ---
Clinical Report - Physicians/Mid Levels [facility] [address] [place] [address] 11/01/2016 8:15 Patient: NICOLA WATTS Time Seen: 08:36. Arrived- By private vehicle. Historian- patient. HISTORY OF PRESENT ILLNESS Chief Complaint: LOWER EXTREMITY PAIN and SWELLING. Severity is described as being severe. The quality is noted to be "pain". This started last night and is still present. It was abrupt in onset and has been constant. Symptoms located in the area of the right leg. The patient has had redness and swelling. ( The patient reports that after her prior injury she had been treated for a rash on the leg with a cream and that those symptoms had resolved.). Patient notes an injury. Patient denies a recent injury. Mechanism of injury- (Last month the patient injured her right leg after falling through a deck. All of her symptoms had resolved however. At that time she had swelling and bruising and pain. She says an ultrasound was done at that time and she had no clots.). Similar symptoms previously: Once. Recent medical care: Not recently seen/assessed. REVIEW OF SYSTEMS No chills, fever, sweats, chest pain or cough. No difficulty breathing, pedal edema, palpitations, abdominal pain or constipation. No diarrhea, nausea, vomiting or urinary problems. All systems otherwise negative, except as recorded above. PAST HISTORY ( she had a previous right total knee replacement and then a subsequent revision.). Medications: Levothyroxine Sodium Oral 175 mcg, daily. Lisinopril Oral (Tablet 20 mg), daily. Allergies: Penicillin.(itching, rash) Rifampin. Possible Vancocin.(angioedema, itching, rash) (skin peeling). SOCIAL HISTORY Never smoker. Occasional alcohol use. No drug use. FAMILY HISTORY Denies family medical history. Specifically no family history of deep pain thrombosis or pulmonary embolism. ADDITIONAL NOTES The nursing notes have been reviewed. PHYSICAL EXAM Vital Signs: 11/01/2016 08:20 BP: 131/90. HR: 85. RR: 18. O2 saturation: 100%. Temp: 98.1 F. Pain level now: 02/16. Have been reviewed. Appearance: Alert. She is morbidly obese. Eyes: Pupils equal, round and reactive to light. ENT: Pharynx normal. Neck: Normal inspection. Neck supple. CVS: Normal heart rate and rhythm. Heart sounds normal. Respiratory: No respiratory distress. Breath sounds normal. Abdomen: Soft and nontender. No organomegaly. Back: Normal inspection. Skin: Skin warm and dry. Extremities: Right leg: mild erythema and moderate tenderness. Moderate right-sided calf tenderness. Neuro: Oriented X 3. LABS, X-RAYS, AND EKG Lower Extremity Sonography: No DVT. Fluid collection lateral calf area 8.9x5.9 cm and 2 cm deep c/w hematoma. The exam was performed by a materials engineering technician. The study was interpreted by the radiologist and discussed with the radiologist. Prior studies were not available for comparison. Laboratory Tests: CBC w Diff: (ARPITA: 11/01/2016 09:00) ( [facility] 11/01/2016 09:19) Final results Test Result Flag Units (Reference) WHITE BLOOD COUNT 9.6 K/uL (4.5-11.5) RED BLOOD COUNT 4.55 M/uL (4.00-5.20) HEMOGLOBIN 14.2 gm/dL (12.0-16.0) HEMATOCRIT 42.8 % (36.0-46.0) MEAN CELL VOLUME 94 fL (80-100) MEAN CORPUSCULAR HGB 31 pg (26-34) MEAN CORPUSCULAR HGB CONC 33 g/dL (31-37) RED CELL DISTRIBUTION WIDTH 13.5 % (11.6-14.8) PLATELET COUNT 252 K/uL (150-400) NEUTROPHIL % 78.0 H % (50-75) LYMPH % 12.4 L % (25-40) MONO % 6.0 % (3-14) EOSINOPHIL % 3.3 % (0-4) BASOPHIL % 0.3 % (0-2) PT with INR: (ARPITA: 11/01/2016 09:00) ( [facility] 11/01/2016 09:34) Final results Test Result Flag Units (Reference) INR 1.1 (0.8-1.2) Low Intensity Therapy: INR 1.5-2.0 PT range 18.5-23.1Mod.Intensity Therapy: INR 2.0-3.0 PT range 23.1-31.5High Intensity Therapy: INR 2.5-3.5 PT range 27.4-35.5High Intensity Therapy 2: INR 3.0-4.0 PT range 31.5-39.3 APTT 28 SECONDS (24-34) D-DIMER QUANTITATIVE 0.28 ug/mLFEU (0.27-0.52) The primary value of this quantitative assay relates toits negative predictive value (i.e. exclusion) of pulmonaryembolism/deep vein thrombosis/DIC.Elevated levels of d-dimer may also occur with:, age, cancer, inflammation, liver disease,post-op, infection, hematoma, coronary disease, peripheralarteriopathy, bleeding disorders and thrombolytic treatment.Results should be correlated with other clinical andradiological data.Testing Methodology: Latex Immunoassay CMP: (ARPITA: 11/01/2016 09:00) ( [facility] 11/01/2016 09:32) Final results Test Result Flag Units (Reference) GLUCOSE 154 H mg/dL (70-110) BUN 14 mg/dL (7-18) CREATININE 0.8 mg/dL (0.6-1.3) Estimated GFR >60 mL/min Estimated GFR- >60 mL/min Note: Persistent reduction over 3 months in eGFR<60 mL/min/1.73 m2 defines CKD. Patients with eGFR values>=60 mL/min/1.73 m2 may also have CKD if evidence ofpersistent proteinuria. Additional information may be foundat www.kidney.org. SODIUM 140 mmol/L (136-145) POTASSIUM 3.7 mmol/L (3.5-5.1) CHLORIDE 103 mmol/L (98-107) CARBON DIOXIDE 26 mmol/L (21-32) CALCIUM 8.6 mg/dL (8.5-10.1) TOTAL PROTEIN 6.9 g/dL (6.4-8.2) ALBUMIN 3.4 g/dL (3.3-5.0) BILIRUBIN, TOTAL 0.6 mg/dL (0.0-1.0) ALKALINE PHOSPHATASE 57 U/L (46-116) AST (SGOT) 30 U/L (15-37) ALT (SGPT) 56 U/L (12-78) . PROGRESS AND PROCEDURES Course of Care: 09:15 11/01/16. Dr. Concepcion and I reviewed the patient's history and physical examination findings at change of shift. He will follow up on the results of the patient's pending lab work and ultrasound and will arrange an appropriate disposition for the patient.` - MW. Consult obtained from surgery. 11:28 Dr. Benavidez. Will see pt in ofc and attempt U/S guided aspiration. Case discussed. Phone consult only. Will see patient in the office. Old medical records reviewed. Disposition: Discharged home in good condition. Condition: good. CLINICAL IMPRESSION Single hematoma to the right lower leg. INSTRUCTIONS You may walk and bear weight as tolerated. Warnings: GENERAL WARNINGS: Return or contact your physician immediately if your condition worsens or changes unexpectedly, if not improving as expected, or if other problems arise. Specifically return if pain or fever worsens. Your Current Medications: CONTINUE TAKING THE FOLLOWING MEDICATIONS: Levothyroxine Sodium Oral : 175 mcg daily. Lisinopril Oral : Tablet 20 mg, daily. Prescription Medications: Hydrocodone/APAP 5mg / 325mg: take 1-2 orally every 6 hours as needed for pain. Dispense twenty (20). No refill. Follow-up: Blood pressure screening was not performed during this visit because the patient has an active diagnosis of hypertension. Follow-up with: Tai Benavidez MD, General Surgeon, , [facility], [address] [place] [address], [id number] Follow up in about four. Call for an appointment. (Electronically signed by Vishnu Concepcion Dr. 11/01/2016 14:10)
--- NOTE | 2016-11-01 11:29 | ED ORDER SUMMARY ---
..... Patient: NICOLA WATTS OrderSheet [facility] VisitID: [id number] [address] [place] [address] 60y, F Registration Date/Time: 11/01/2016 ORDER SHEET Weight: 122.4 kg (stated) Allergies: Penicillin, Rifampin, Vancocin GENERAL ORDERS: US Venous Right Urgent (08:49 11/01/2016 Deion NICOLE) (Ack 8:50 PWeiler ER Tech1) (19:17 LSullivan R.N.) CBC w Diff Urgent (08:49 11/01/2016 Deion NICOLE) (Ack 8:50 PWbing ER Tech1) (9:05 LSullivan R.N.) PT with INR Urgent (08:49 11/01/2016 Deion NICOLE) (Ack 8:50 Kathy ER Tech1) (9:05 LSullivan R.N.) PTT Urgent (08:49 11/01/2016 Deion NICOLE) (Ack 8:50 PWeigloria ER Tech1) (9:05 LSullivan R.N.) CMP Urgent (08:49 11/01/2016 Deion NICOLE) (Ack 8:50 Kathy ER Tech1) (9:05 LSullivan R.N.) D-Dimer Urgent (08:49 11/01/2016 Deion NICOLE) (Ack 8:50 Kathy ER Tech1) (9:05 LSullivan R.N.) MEDICATION ORDERS: IV FLUIDS: IV Saline Lock (08:49 11/01/2016 Deion NICOLE) (9:05 LSullivan R.N.) ORDER SHEET NOTES: [Electronically signed by Vishnu Concepcion Dr. (14:10 11/01/2016)] [Electronically signed by Angela Moraes R.N. (19:17 11/01/2016)] [Electronically locked/signed by Angela Moraes R.N. (19:17 11/01/2016)]
--- NOTE | 2016-11-01 11:29 | ED NURSING NOTES ---
Clinical Report - Nurses [facility] [address] [place] [address] 11/01/2016 8:15 Patient: NICOLA WATTS TRIAGE Triage time 08:20. Chief Complaint: RIGHT LOWER EXTREMITY PAIN. Location of symptoms- (fell through her deck 1 month ago, and leg got stuck, was seen here). Alert. SEPSIS SCREEN: Sepsis Screen. Negative (no infection suspected/documented). --08:25 Angela Moraes R.N. 08:20 11/01/16. BP: 131/90. HR: 85. RR: 18. O2 saturation: 100%. Temp: 98.1 F. Pain level now: 910. --08:25 Angela Moraes R.N. JUANPABLO COMA SCORE: [place] Coma Scale: 15- eyes open spontaneously (4); best verbal response- oriented x 4 (5); best motor response- obeys commands (6). --08:25 Angela Moraes R.N. Weight: 122.4 kg stated. Height/Length: 62 inches Per Patient. BMI: 49.4. --08:23 Angela Moraes R.N. Medications Levothyroxine Sodium Oral 175 mcg, daily. Lisinopril Oral (Tablet 20 mg), daily. --08:22 Angela Moraes R.N. Allergies Penicillin.(itching, rash) Rifampin. Possible Vancocin.(angioedema, itching, rash) (skin peeling) --08:22 Angela Moraes R.N. History Arrived by private vehicle. Primary physician (none). ( Pt woke up this morning and her right leg is aching, and it feels hot and is reddened). This occurred (1 month ago, and suddenly worse this morning). SOCIAL HX: Never smoker. Alcohol use. (seldome). No drug use. SELF HARM ASSESSMENT: A self harm assessment was performed. The patient answered "no" to the question "Do you have thoughts of harming or killing yourself?". FALL RISK ASSESSMENT: Fall risk assessment completed. No fall risk identified. ABUSE ASSESSMENT: Abuse assessment: ('yes") The patient was asked "Do you feel safe in your home?". --08:25 Angela Moraes R.N. PROBLEMS: Contusion. Cellulitis. Pneumonia. Multiple Sclerosis. Hypertension. Thyroid Disease. --08:23 Angela Moraes R.N. ADDITIONAL SURGERIES: Knee Surgery. --08:23 Angela Moraes R.N. Interventions ID band on patient. To room. --08:25 Angela Moraes R.N. PHYSICAL ASSESSMENT 08:11/01/16. EXTREMITIES: Right leg: tenderness and swelling. --08:25 Angela Moraes R.N. NURSING PROGRESS NOTES 08:11/01/16. Patient identifiers checked. Call light placed in reach. Bed placed in lowest position. Patient ready for evaluation. --08:25 Angela Moraes R.N. 09:05 11/01/2016 Site #1 started via IV in the left forearm with an 20g angiocath, with aseptic technique and good blood return; one attempt. Blood drawn: rainbow set. Labeled in the presence of the patient and sent to the lab. Saline lock flushed with 10 mL saline. --09:05 Angela Moraes R.N. ( ultrasound was already here). --10:21 Angela Moraes R.N. DISPOSITION / DISCHARGE 11:56 11/01/2016 Site #1 removed upon discharge. Bandaid applied. --12:01 Ajit Cain R.N. No learning barriers present. Discharge instructions provided and reviewed with the patient. Reviewed medication(s) side effects, precautions and course information. Patient verbalized understanding. Written instructions provided in Greenlandic. The patient was discharged by the physician. She was discharged home. She left the Emergency Department ambulatory and via private vehicle. Patient driving. ( pt dc only by this RN, pt ambulatory to lobby with steady gait, denies sob, given rx and f/u). --12:02 Ajit Cain R.N. 12:00 11/01/16. BP: 129/79. HR: 74. RR: 17. O2 saturation: 100%. Temp: deferred. Pain level now: 02/16. --12:02 Page-Ajit Womack R.N. Locked/Released at 11/01/2016 19:17 by Angela Moraes R.N.
--- NOTE | 2016-11-01 11:29 | ED ORDER SUMMARY ---
..... Patient: NICOLA WATTS OrderSheet [facility] VisitID: [id number] [address] [place] [address] 60y, F Registration Date/Time: 11/01/2016 ORDER SHEET Weight: 122.4 kg (stated) Allergies: Penicillin, Rifampin, Vancocin GENERAL ORDERS: US Venous Right Urgent (08:49 11/01/2016 Deion NICOLE) (Ack 8:50 PWeiler ER Tech1) (19:17 LSullivan R.N.) CBC w Diff Urgent (08:49 11/01/2016 Deion NICOLE) (Ack 8:50 PWbing ER Tech1) (9:05 LSullivan R.N.) PT with INR Urgent (08:49 11/01/2016 Deion NICOLE) (Ack 8:50 Kathy ER Tech1) (9:05 LSullivan R.N.) PTT Urgent (08:49 11/01/2016 Deion NICOLE) (Ack 8:50 PWeigloria ER Tech1) (9:05 LSullivan R.N.) CMP Urgent (08:49 11/01/2016 Deion NICOLE) (Ack 8:50 Kathy ER Tech1) (9:05 LSullivan R.N.) D-Dimer Urgent (08:49 11/01/2016 Deion NICOLE) (Ack 8:50 Kathy ER Tech1) (9:05 LSullivan R.N.) MEDICATION ORDERS: IV FLUIDS: IV Saline Lock (08:49 11/01/2016 Deion NICOLE) (9:05 LSullivan R.N.) ORDER SHEET NOTES: [Electronically signed by Vishnu Concepcion Dr. (14:10 11/01/2016)] [Electronically signed by Angela Moraes R.N. (19:17 11/01/2016)] [Electronically locked/signed by Angela Moraes R.N. (19:17 11/01/2016)]
--- NOTE | 2016-11-01 11:29 | ED CLINICAL REPORT ---
Clinical Report - Physicians/Mid Levels [facility] [address] [place] [address] 11/01/2016 8:15 Patient: NICOLA WATTS Time Seen: 08:36. Arrived- By private vehicle. Historian- patient. HISTORY OF PRESENT ILLNESS Chief Complaint: LOWER EXTREMITY PAIN and SWELLING. Severity is described as being severe. The quality is noted to be "pain". This started last night and is still present. It was abrupt in onset and has been constant. Symptoms located in the area of the right leg. The patient has had redness and swelling. ( The patient reports that after her prior injury she had been treated for a rash on the leg with a cream and that those symptoms had resolved.). Patient notes an injury. Patient denies a recent injury. Mechanism of injury- (Last month the patient injured her right leg after falling through a deck. All of her symptoms had resolved however. At that time she had swelling and bruising and pain. She says an ultrasound was done at that time and she had no clots.). Similar symptoms previously: Once. Recent medical care: Not recently seen/assessed. REVIEW OF SYSTEMS No chills, fever, sweats, chest pain or cough. No difficulty breathing, pedal edema, palpitations, abdominal pain or constipation. No diarrhea, nausea, vomiting or urinary problems. All systems otherwise negative, except as recorded above. PAST HISTORY ( she had a previous right total knee replacement and then a subsequent revision.). Medications: Levothyroxine Sodium Oral 175 mcg, daily. Lisinopril Oral (Tablet 20 mg), daily. Allergies: Penicillin.(itching, rash) Rifampin. Possible Vancocin.(angioedema, itching, rash) (skin peeling). SOCIAL HISTORY Never smoker. Occasional alcohol use. No drug use. FAMILY HISTORY Denies family medical history. Specifically no family history of deep pain thrombosis or pulmonary embolism. ADDITIONAL NOTES The nursing notes have been reviewed. PHYSICAL EXAM Vital Signs: 11/01/2016 08:20 BP: 131/90. HR: 85. RR: 18. O2 saturation: 100%. Temp: 98.1 F. Pain level now: 02/16. Have been reviewed. Appearance: Alert. She is morbidly obese. Eyes: Pupils equal, round and reactive to light. ENT: Pharynx normal. Neck: Normal inspection. Neck supple. CVS: Normal heart rate and rhythm. Heart sounds normal. Respiratory: No respiratory distress. Breath sounds normal. Abdomen: Soft and nontender. No organomegaly. Back: Normal inspection. Skin: Skin warm and dry. Extremities: Right leg: mild erythema and moderate tenderness. Moderate right-sided calf tenderness. Neuro: Oriented X 3. LABS, X-RAYS, AND EKG Lower Extremity Sonography: No DVT. Fluid collection lateral calf area 8.9x5.9 cm and 2 cm deep c/w hematoma. The exam was performed by a master automotive technician. The study was interpreted by the radiologist and discussed with the radiologist. Prior studies were not available for comparison. Laboratory Tests: CBC w Diff: (ARPITA: 11/01/2016 09:00) ( [facility] 11/01/2016 09:19) Final results Test Result Flag Units (Reference) WHITE BLOOD COUNT 9.6 K/uL (4.5-11.5) RED BLOOD COUNT 4.55 M/uL (4.00-5.20) HEMOGLOBIN 14.2 gm/dL (12.0-16.0) HEMATOCRIT 42.8 % (36.0-46.0) MEAN CELL VOLUME 94 fL (80-100) MEAN CORPUSCULAR HGB 31 pg (26-34) MEAN CORPUSCULAR HGB CONC 33 g/dL (31-37) RED CELL DISTRIBUTION WIDTH 13.5 % (11.6-14.8) PLATELET COUNT 252 K/uL (150-400) NEUTROPHIL % 78.0 H % (50-75) LYMPH % 12.4 L % (25-40) MONO % 6.0 % (3-14) EOSINOPHIL % 3.3 % (0-4) BASOPHIL % 0.3 % (0-2) PT with INR: (ARPITA: 11/01/2016 09:00) ( [facility] [place] 11/01/2016 09:34) Final results Test Result Flag Units (Reference) INR 1.1 (0.8-1.2) Low Intensity Therapy: INR 1.5-2.0 PT range 18.5-23.1Mod.Intensity Therapy: INR 2.0-3.0 PT range 23.1-31.5High Intensity Therapy: INR 2.5-3.5 PT range 27.4-35.5High Intensity Therapy 2: INR 3.0-4.0 PT range 31.5-39.3 APTT 28 SECONDS (24-34) D-DIMER QUANTITATIVE 0.28 ug/mLFEU (0.27-0.52) The primary value of this quantitative assay relates toits negative predictive value (i.e. exclusion) of pulmonaryembolism/deep vein thrombosis/DIC.Elevated levels of d-dimer may also occur with:, age, cancer, inflammation, liver disease,post-op, infection, hematoma, coronary disease, peripheralarteriopathy, bleeding disorders and thrombolytic treatment.Results should be correlated with other clinical andradiological data.Testing Methodology: Latex Immunoassay CMP: (ARPITA: 11/01/2016 09:00) ( MsgRcvd 11/01/2016 09:32) Final results Test Result Flag Units (Reference) GLUCOSE 154 H mg/dL (70-110) BUN 14 mg/dL (7-18) CREATININE 0.8 mg/dL (0.6-1.3) Estimated GFR >60 mL/min Estimated GFR- >60 mL/min Note: Persistent reduction over 3 months in eGFR<60 mL/min/1.73 m2 defines CKD. Patients with eGFR values>=60 mL/min/1.73 m2 may also have CKD if evidence ofpersistent proteinuria. Additional information may be foundat www.[email or web address].org. SODIUM 140 mmol/L (136-145) POTASSIUM 3.7 mmol/L (3.5-5.1) CHLORIDE 103 mmol/L (98-107) CARBON DIOXIDE 26 mmol/L (21-32) CALCIUM 8.6 mg/dL (8.5-10.1) TOTAL PROTEIN 6.9 g/dL (6.4-8.2) ALBUMIN 3.4 g/dL (3.3-5.0) BILIRUBIN, TOTAL 0.6 mg/dL (0.0-1.0) ALKALINE PHOSPHATASE 57 U/L (46-116) AST (SGOT) 30 U/L (15-37) ALT (SGPT) 56 U/L (12-78) . PROGRESS AND PROCEDURES Course of Care: 09:15 11/01/16. Dr. Concepcion and I reviewed the patient's history and physical examination findings at change of shift. He will follow up on the results of the patient's pending lab work and ultrasound and will arrange an appropriate disposition for the patient.` - MW. Consult obtained from surgery. 11:28 Dr. Benavidez. Will see pt in ofc and attempt U/S guided aspiration. Case discussed. Phone consult only. Will see patient in the office. Old medical records reviewed. Disposition: Discharged home in good condition. Condition: good. CLINICAL IMPRESSION Single hematoma to the right lower leg. INSTRUCTIONS You may walk and bear weight as tolerated. Warnings: GENERAL WARNINGS: Return or contact your physician immediately if your condition worsens or changes unexpectedly, if not improving as expected, or if other problems arise. Specifically return if pain or fever worsens. Your Current Medications: CONTINUE TAKING THE FOLLOWING MEDICATIONS: Levothyroxine Sodium Oral : 175 mcg daily. Lisinopril Oral : Tablet 20 mg, daily. Prescription Medications: Hydrocodone/APAP 5mg / 325mg: take 1-2 orally every 6 hours as needed for pain. Dispense twenty (20). No refill. Follow-up: Blood pressure screening was not performed during this visit because the patient has an active diagnosis of hypertension. Follow-up with: Tai Benavidez MD, General Surgeon, , [facility], [address] [place] [address], [address] Follow up in about four. Call for an appointment. (Electronically signed by Vishnu Concepcion Dr. 11/01/2016 14:10)
--- NOTE | 2016-11-01 19:17 | ED DISCHARGE INSTRUCTIONS ---
Patient: NICOLA WATTS General Instructions [facility] VisitID: [id number] [address] [place] [id number] 60y, F Registration Date/Time: 11/01/2016 Single hematoma to the right lower leg. INSTRUCTIONS You may walk and bear weight as tolerated. Warnings: GENERAL WARNINGS: Return or contact your physician immediately if your condition worsens or changes unexpectedly, if not improving as expected, or if other problems arise. Specifically return if pain or fever worsens. Your Current Medications: CONTINUE TAKING THE FOLLOWING MEDICATIONS: Levothyroxine Sodium Oral : 175 mcg daily. Lisinopril Oral : Tablet 20 mg, daily. Prescription Medications: Hydrocodone/APAP 5mg / 325mg: take 1-2 orally every 6 hours as needed for pain. Dispense twenty (20). No refill. Follow-up: Blood pressure screening was not performed during this visit because the patient has an active diagnosis of hypertension. Follow-up with: Tai Benavidez MD, General Surgeon, , [facility], [address] [place] [address] Follow up in about four. Call for an appointment. ADDITIONAL INFORMATION Hematoma A hematoma is caused by an injury with damage to small blood vessels. This causes blood to leak into the tissues. Blood forms a pocket under the skin that swells and looks like a purplish patch. Gradually the blood in the hematoma is absorbed back into the body. The swelling and pain of the hematoma will go away. This takes from one to four weeks, depending on the size of the hematoma. The skin over the hematoma may turn bluish then brown and yellow as the blood is dissolved and absorbed. Home Care: Limit motion of the joints near the hematoma. If the hematoma is large and painful, you should avoid sports and other vigorous physical activity until the swelling and pain goes away. Apply an ice pack (ice cubes in a plastic bag, wrapped in a towel) over the injured area for 20 minutes every 1-2 hours the first day. You should continue with ice packs 3-4 times a day for the next two days. Continue the use of ice packs for relief of pain and swelling as needed. You may use acetaminophen (Tylenol) or ibuprofen (Motrin, Advil) to control pain, unless another pain medicine was prescribed. [ NOTE : If you have chronic liver or kidney disease or ever had a stomach ulcer or GI bleeding, talk with your doctor before using these medicines.] Follow Up with your doctor or as advised by our staff. [ NOTE: A radiologist will review any X-rays that were taken. We will notify you of any new findings that may affect your care.] Get Prompt Medical Attention if any of the following occur: Redness around the hematoma Increase in pain or warmth in the hematoma Increase in size of the hematoma Fever of 100.4F (38C) or higher, or as directed by your healthcare provider If the hematoma is on the arm or leg, watch for: Increased swelling or pain in the extremity Numbness or tingling or blue color of the hand or foot Hydrocodone Bitartrate, Acetaminophen Oral tablet What is this medicine? ACETAMINOPHEN; HYDROCODONE (a set a SALONI rodrigo fen; nader droe KOE done) is a pain reliever. It is used to treat mild to moderate pain. How should I use this medicine? Take this medicine by mouth. Swallow it with a full glass of water. Follow the directions on the prescription label. If the medicine upsets your stomach, take the medicine with food or milk. Do not take more than you are told to take. Talk to your maple products supervisor regarding the use of this medicine in children. This medicine is not approved for use in children. What side effects may I notice from receiving this medicine? Side effects that you should report to your doctor or health child care center administrator as soon as possible: allergic reactions like skin rash, itching or hives, swelling of the face, lips, or tongue breathing problems confusion feeling faint or lightheaded, falls stomach pain yellowing of the eyes or skin Side effects that usually do not require medical attention (report to your doctor or health child care center administrator if they continue or are bothersome): nausea, vomiting stomach upset What may interact with this medicine? alcohol antihistamines isoniazid medicines for depression, anxiety, or psychotic disturbances medicines for sleep muscle relaxants naltrexone narcotic medicines (opiates) for pain phenobarbital ritonavir tramadol What if I miss a dose? If you miss a dose, take it as soon as you can. If it is almost time for your next dose, take only that dose. Do not take double or extra doses. Where should I keep my medicine? Keep out of the reach of children. This medicine can be abused. Keep your medicine in a safe place to protect it from theft. Do not share this medicine with anyone. Selling or giving away this medicine is dangerous and against the law. Store at room temperature between 15 and 30 degrees C (59 and 86 degrees F). Protect from light. Keep container tightly closed. Throw away any unused medicine after the expiration date. Discard unused medicine and used packaging carefully. Pets and children can be harmed if they find used or lost packages. What should I tell my health care provider before I take this medicine? They need to know if you have any of these conditions: brain tumor Crohn's disease, inflammatory bowel disease, or ulcerative colitis drink more than 3 alcohol-containing drinks per day drug abuse or addiction head injury heart or circulation problems kidney disease or problems going to the bathroom liver disease lung disease, asthma, or breathing problems an unusual or allergic reaction to acetaminophen, hydrocodone, other opioid analgesics, other medicines, foods, dyes, or preservatives or trying to get breast-feeding What should I watch for while using this medicine? Tell your doctor or health child care center administrator if your pain does not go away, if it gets worse, or if you have new or a different type of pain. You may develop tolerance to the medicine. Tolerance means that you will need a higher dose of the medicine for pain relief. Tolerance is normal and is expected if you take the medicine for a long time. Do not suddenly stop taking your medicine because you may develop a severe reaction. Your body becomes used to the medicine. This does NOT mean you are addicted. Addiction is a behavior related to getting and using a drug for a non-medical reason. If you have pain, you have a medical reason to take pain medicine. Your doctor will tell you how much medicine to take. If your doctor wants you to stop the medicine, the dose will be slowly lowered over time to avoid any side effects. You may get drowsy or dizzy when you first start taking the medicine or change doses. Do not drive, use machinery, or do anything that may be dangerous until you know how the medicine affects you. Stand or sit up slowly. There are different types of narcotic medicines (opiates) for pain. If you take more than one type at the same time, you may have more side effects. Give your health care provider a list of all medicines you use. Your doctor will tell you how much medicine to take. Do not take more medicine than directed. Call emergency for help if you have problems breathing. The medicine will cause constipation. Try to have a bowel movement at least every 2 to 3 days. If you do not have a bowel movement for 3 days, call your doctor or health child care center administrator. Too much acetaminophen can be very dangerous. Do not take Tylenol (acetaminophen) or medicines that contain acetaminophen with this medicine. Many non-prescription medicines contain acetaminophen. Always read the labels carefully. You have been given the following additional information: Hematoma Hydrocodone Bitartrate, Acetaminophen Oral tablet You may walk and bear weight as tolerated. (Electronically signed by Vishnu Concepcion Dr. 11/01/2016 14:10)
--- NOTE | 2016-11-01 19:17 | ED MED RECONCILIATION SUMMARY ---
Patient: NICOLA WATTS Medication Reconciliation Report [facility] VisitID: [id number] [address] [place] [address] 60y, F Registration Date/Time: 11/01/2016 Weight: 122.4 kg Height/Length: 62 in. BMI: 49.4 ALLERGIES: Penicillin, Rifampin, Vancocin The patient's Home Medications are listed below: CONTINUE TAKING THE FOLLOWING MEDICATIONS: Levothyroxine Sodium Oral 175 mcg, daily Lisinopril Oral (20 mg), daily The source(s) of the original Home Medication information: Not obtained. The following Medications were given to the patient in the Emergency Department: None. The following Medications were prescribed to the patient: Hydrocodone/APAP 5mg / 325mg: take 1-2 orally every 6 hours as needed for pain. Dispense twenty (20). No refill. -- Vishnu Concepcion Dr.
--- NOTE | 2016-11-01 19:17 | ED MAR SUMMARY ---
..... Medication Administration Record [facility] [address] [place], [place] [id number] Patient: NICOLA WATTS Visit ID: [id number] 60y, F Weight: 122.4 kg Height/Length: 62 in BMI: 49.4 ALLERGIES: Penicillin, Rifampin, Vancocin
--- NOTE | 2016-11-01 19:17 | ED DISCHARGE INSTRUCTIONS ---
Patient: NICOLA WATTS General Instructions [facility] VisitID: [id number] [place], [place] [id number] 60y, F Registration Date/Time: 11/01/2016 Single hematoma to the right lower leg. INSTRUCTIONS You may walk and bear weight as tolerated. Warnings: GENERAL WARNINGS: Return or contact your physician immediately if your condition worsens or changes unexpectedly, if not improving as expected, or if other problems arise. Specifically return if pain or fever worsens. Your Current Medications: CONTINUE TAKING THE FOLLOWING MEDICATIONS: Levothyroxine Sodium Oral : 175 mcg daily. Lisinopril Oral : Tablet 20 mg, daily. Prescription Medications: Hydrocodone/APAP 5mg / 325mg: take 1-2 orally every 6 hours as needed for pain. Dispense twenty (20). No refill. Follow-up: Blood pressure screening was not performed during this visit because the patient has an active diagnosis of hypertension. Follow-up with: Tai Benavidez MD, General Surgeon, , [facility], [address] [place] [address] Follow up in about four. Call for an appointment. ADDITIONAL INFORMATION Hematoma A hematoma is caused by an injury with damage to small blood vessels. This causes blood to leak into the tissues. Blood forms a pocket under the skin that swells and looks like a purplish patch. Gradually the blood in the hematoma is absorbed back into the body. The swelling and pain of the hematoma will go away. This takes from one to four weeks, depending on the size of the hematoma. The skin over the hematoma may turn bluish then brown and yellow as the blood is dissolved and absorbed. Home Care: Limit motion of the joints near the hematoma. If the hematoma is large and painful, you should avoid sports and other vigorous physical activity until the swelling and pain goes away. Apply an ice pack (ice cubes in a plastic bag, wrapped in a towel) over the injured area for 20 minutes every 1-2 hours the first day. You should continue with ice packs 3-4 times a day for the next two days. Continue the use of ice packs for relief of pain and swelling as needed. You may use acetaminophen (Tylenol) or ibuprofen (Motrin, Advil) to control pain, unless another pain medicine was prescribed. [ NOTE : If you have chronic liver or kidney disease or ever had a stomach ulcer or GI bleeding, talk with your doctor before using these medicines.] Follow Up with your doctor or as advised by our staff. [ NOTE: A radiologist will review any X-rays that were taken. We will notify you of any new findings that may affect your care.] Get Prompt Medical Attention if any of the following occur: Redness around the hematoma Increase in pain or warmth in the hematoma Increase in size of the hematoma Fever of 100.4F (38C) or higher, or as directed by your healthcare provider If the hematoma is on the arm or leg, watch for: Increased swelling or pain in the extremity Numbness or tingling or blue color of the hand or foot Hydrocodone Bitartrate, Acetaminophen Oral tablet What is this medicine? ACETAMINOPHEN; HYDROCODONE (a set a SALONI rodrigo fen; nader droe KOE done) is a pain reliever. It is used to treat mild to moderate pain. How should I use this medicine? Take this medicine by mouth. Swallow it with a full glass of water. Follow the directions on the prescription label. If the medicine upsets your stomach, take the medicine with food or milk. Do not take more than you are told to take. Talk to your seasonal warehouse associate regarding the use of this medicine in children. This medicine is not approved for use in children. What side effects may I notice from receiving this medicine? Side effects that you should report to your doctor or health patient care as soon as possible: allergic reactions like skin rash, itching or hives, swelling of the face, lips, or tongue breathing problems confusion feeling faint or lightheaded, falls stomach pain yellowing of the eyes or skin Side effects that usually do not require medical attention (report to your doctor or health patient care if they continue or are bothersome): nausea, vomiting stomach upset What may interact with this medicine? alcohol antihistamines isoniazid medicines for depression, anxiety, or psychotic disturbances medicines for sleep muscle relaxants naltrexone narcotic medicines (opiates) for pain phenobarbital ritonavir tramadol What if I miss a dose? If you miss a dose, take it as soon as you can. If it is almost time for your next dose, take only that dose. Do not take double or extra doses. Where should I keep my medicine? Keep out of the reach of children. This medicine can be abused. Keep your medicine in a safe place to protect it from theft. Do not share this medicine with anyone. Selling or giving away this medicine is dangerous and against the law. Store at room temperature between 15 and 30 degrees C (59 and 86 degrees F). Protect from light. Keep container tightly closed. Throw away any unused medicine after the expiration date. Discard unused medicine and used packaging carefully. Pets and children can be harmed if they find used or lost packages. What should I tell my health care provider before I take this medicine? They need to know if you have any of these conditions: brain tumor Crohn's disease, inflammatory bowel disease, or ulcerative colitis drink more than 3 alcohol-containing drinks per day drug abuse or addiction head injury heart or circulation problems kidney disease or problems going to the bathroom liver disease lung disease, asthma, or breathing problems an unusual or allergic reaction to acetaminophen, hydrocodone, other opioid analgesics, other medicines, foods, dyes, or preservatives or trying to get breast-feeding What should I watch for while using this medicine? Tell your doctor or health patient care if your pain does not go away, if it gets worse, or if you have new or a different type of pain. You may develop tolerance to the medicine. Tolerance means that you will need a higher dose of the medicine for pain relief. Tolerance is normal and is expected if you take the medicine for a long time. Do not suddenly stop taking your medicine because you may develop a severe reaction. Your body becomes used to the medicine. This does NOT mean you are addicted. Addiction is a behavior related to getting and using a drug for a non-medical reason. If you have pain, you have a medical reason to take pain medicine. Your doctor will tell you how much medicine to take. If your doctor wants you to stop the medicine, the dose will be slowly lowered over time to avoid any side effects. You may get drowsy or dizzy when you first start taking the medicine or change doses. Do not drive, use machinery, or do anything that may be dangerous until you know how the medicine affects you. Stand or sit up slowly. There are different types of narcotic medicines (opiates) for pain. If you take more than one type at the same time, you may have more side effects. Give your health care provider a list of all medicines you use. Your doctor will tell you how much medicine to take. Do not take more medicine than directed. Call emergency for help if you have problems breathing. The medicine will cause constipation. Try to have a bowel movement at least every 2 to 3 days. If you do not have a bowel movement for 3 days, call your doctor or health patient care. Too much acetaminophen can be very dangerous. Do not take Tylenol (acetaminophen) or medicines that contain acetaminophen with this medicine. Many non-prescription medicines contain acetaminophen. Always read the labels carefully. You have been given the following additional information: Hematoma Hydrocodone Bitartrate, Acetaminophen Oral tablet You may walk and bear weight as tolerated. (Electronically signed by Vishnu Concepcion Dr. 11/01/2016 14:10)
--- NOTE | 2016-11-01 19:17 | ED MAR SUMMARY ---
..... Medication Administration Record [facility] [address] [place], [place] [id number] Patient: NICOLA WATTS Visit ID: [id number] 60y, F Weight: 122.4 kg Height/Length: 62 in BMI: 49.4 ALLERGIES: Penicillin, Rifampin, Vancocin
--- NOTE | 2016-11-01 19:17 | ED MED RECONCILIATION SUMMARY ---
Patient: NICOLA WATTS Medication Reconciliation Report [facility] VisitID: [id number] [address] [place] [address] 60y, F Registration Date/Time: 11/01/2016 Weight: 122.4 kg Height/Length: 62 in. BMI: 49.4 ALLERGIES: Penicillin, Rifampin, Vancocin The patient's Home Medications are listed below: CONTINUE TAKING THE FOLLOWING MEDICATIONS: Levothyroxine Sodium Oral 175 mcg, daily Lisinopril Oral (20 mg), daily The source(s) of the original Home Medication information: Not obtained. The following Medications were given to the patient in the Emergency Department: None. The following Medications were prescribed to the patient: Hydrocodone/APAP 5mg / 325mg: take 1-2 orally every 6 hours as needed for pain. Dispense twenty (20). No refill. -- Vishnu Concepcion Dr.
== END 2016-11-01 11:57 | disposition home or self-care (01) ==
LOC: ED SRH 08:12
DX: S80.11XA Contusion of right lower leg, initial encounter (principal); W13.8XXA Fall from, out of or through other building or structure, initial encounter; Z79.899 Other long term (current) drug therapy; Z96.651 Presence of right artificial knee joint

== ENCOUNTER 2016-11-05 10:51 | Day surgery (SDC) | payer BC ==
[~2016-11-05] VITALS: Ht 157.5 cm; Wt 132.2 kg
[2016-11-05] MEDS ORDERED: HYCET1 ML PO (12:13)
--- NOTE | 2016-11-05 12:16 | Provider's Discharge Care Plan ---
Problem, Goal, Plan Problem List 1. STATUS POST EVACUATION HEMATOMA, RIGHT LOWER EXTREMITY Goals: Improve disease control, Improve function, Therapeutic intervention Instructions: Follow up as directed, Take meds as directed, deep right lower extremity elevated at all times. Strip and empty MARS drain as instructed. Major output every 8 hours.
--- NOTE | 2016-11-05 12:18 | DIAGNOSTIC IMAGING REPORT ---
PROCEDURE: US SOFT TISSUE ANYWHERE INDICATION: LAKSHMI HEMATOMA PRIOR FOR SURGERY TECHNIQUE: Bean scale and color Doppler sonographic images of the right calf were obtained COMPARISON: Venous study 10/26 FINDINGS: There is a narrow linear hematoma measuring 5 cm in length and three 1/2 cm in width. IMPRESSION: 1. Right lower extremity calf hematoma measuring 5 cm x 3.5 cm.
--- NOTE | 2016-11-05 13:13 | Operative Report ---
Operative Report Date of Surgery: 11/05/16 Preoperate Diagnosis: chronic hematoma, lateral right calf Postoperative Diagnosis: chronic seroma, lateral right calf Surgeon: Geo Bain MD Supervisor Of Guidance And Testing Surgeon: none Procedure Performed: Incision and drainage/evacuation of chronic seroma, lateral aspect, and a right calf Anesthesia: LMA Indications: 60-year-old female who approximately 3 weeks ago fell through her deck trapping her right leg. Was seen in the emergency room. There was no fracture. Her leg continued to swell and she was seen at 2 outpatient clinics for the swelling. Eventually she returned to the emergency room where ultrasound of her calf region was performed. It was interpreted as a 9 x 6 cm fluid collection consistent with hematoma lateral calf. She states that the swelling has gotten worse. FINDINGS: Chronic seroma lateral aspect, right calf. Surgical Technique: The patient was brought to the operating room. Patient was placed in the dorsal supine position. Patient underwent LMA by anesthesia. After proper anesthesia had taken effect, the patient's right lower extremity was prepped using Betadine and draped in a sterile fashion. An ultrasound of the patient's lateral aspect right calf had been performed just prior the operating room and marked for the extent of the hematoma. The site measured approximately 12 x 9 cm. A site was selected in the mid lateral right calf within the demarcated area and infiltrated using local anesthetic. A 16- gauge needle was introduced at this site and aspirated of clear serum. A 1 cm incision was made over this site, down to subcutaneous tissue. A hemostat was used to enter the seroma fluid cavity which was drained using the Yankauer sucker. The wound was irrigated with warm normal saline. A 10 mm Naresh-Simpson drain was placed within the cavity and brought out through a separate stab incision inferiorly. The Naresh-Simpson drain was trimmed to length and attached to bulb suction. The Naresh-Simpson drain was secured using 3-0 nylon. The original incision was approximated using a single vertical mattress suture of 3- 0 nylon. Sterile occlusive dressings placed over each site. The dressings were wrapped using Kerlix. The Kerlix and lower chest were then wrapped using remigio wrap and a [id number] application. Patient tolerated procedure well. Was transferred to recovery room in stable condition. There were no intraoperative anesthetic palpitations. CONDITION: Stable to recovery room COMPLICATIONS: None ESTIMATED BLOOD LOSS: None FLUIDS:: 400 cc lactate Ringers DRAINS/PACKIN mm Naresh-Simpson drain SPECIMEN: None
[2016-11-05 14:42] VITALS: BP 115/44
== END 2016-11-05 15:08 | disposition home or self-care (01) ==
LOC: OR SRH 10:51 → SCU SRH 10:52 → OR SRH 11:00
PROVIDERS: Specialist
PROC: 0JCN0ZZ Extirpation of Matter from Right Lower Leg Subcutaneous Tissue and Fascia, Open Approach (ICD-10-PCS; principal; 2016-11-05 12:00)
DX: S80.11XA Contusion of right lower leg, initial encounter (principal); W17.89XA Other fall from one level to another, initial encounter; G35 Multiple sclerosis
CPT/HCPCS: 29229; 29240; 50002; 60001; 70002; 80011; 80575; 80813; 83773